=== PATIENT | female | born 1970 | race American Indian/Alaskan Native ===

== ENCOUNTER 2021-08-16 22:10 | Emergency (ER) | payer SELFPAY ==
[2021-08-16 22:25] VITALS: BP 177/103
[2021-08-16] MEDS ORDERED: predniSONE 20 MG TAB PO ONE (22:39)
[2021-08-16] MEDS ORDERED: diphenhydrAMINE 25 MG/10 ML ORAL LIQUID PO ONE (22:39)
[2021-08-16] MEDS ORDERED: CETIRIZINE 10 MG TAB PO ONE (22:39)
[2021-08-16] MEDS ORDERED: ACETAMINOPHEN 325 MG TAB PO STA (22:39)
[2021-08-16] MEDS ORDERED: FAMOTIDINE 20 MG TAB PO ONE (22:39)
--- NOTE | 2021-08-16 22:40 | Emergency Department Report ---
ED General Adult HPI - General Chief complaint: Allergic Reaction Stated complaint: I am having an allergic reaction Time Seen by Provider: 08/16/21 22:32 Source: patient, family, RN notes reviewed Mode of arrival: Ambulatory Limitations: No Limitations - History of Present Illness Initial comments: The patient is a 51-year-old female, who is currently visiting from [facility]. She presents to the ER today with a complaint of skin itching, pruritus, scratchy throat, and swelling around her eyes. She believes that she is having an allergic reaction. She started diclofenac about a week and a half ago for chronic pain. She states she is taken Motrin, Naprosyn, and ibuprofen in the past without significant difficulty. She typically does not present to [place] or visit [place] during pollen season or high allergy season. She reports that she left all of her medications at home. She does report chronic musculoskeletal pain here in the emergency room. She felt improved in the emergency room after supportive therapy. -: Gradual, days(s) Location: head, face, mouth Consistency: other (Aching and itching, constant) Improves with: medication Worsens with: none - Related Data Previous Rx's Medication Instructions Recorded Last Taken Type Albuterol Sulfate [Proair 90 mcg IH Q4HR PRN #2 aer.pow.ba 08/17/21 Unknown Rx Respiclick] Cetirizine HCl [ZyrTEC 10mg cap] 10 mg PO QDAY #30 cap 08/17/21 Unknown Rx EPINEPHrine [Epipen 2-Luis] 0.3 mg IM DAILY PRN #2 ml 08/17/21 Unknown Rx Famotidine [Pepcid] 20 mg PO BID #10 tablet 08/17/21 Unknown Rx diphenhydrAMINE [Benadryl] 50 mg PO Q8HR PRN #20 capsule 08/17/21 Unknown Rx predniSONE [Deltasone] 40 mg PO QDAY #8 tab 08/17/21 Unknown Rx Allergies Allergy/AdvReac Type Severity Reaction Status Date / Time tomato Allergy Swelling Verified 08/16/21 22:16 topiramate [From Topamax] Allergy Shortness Verified 08/16/21 22:16 of Breath ED Review of Systems ROS: Stated complaint: SOB Other details as noted in HPI Constitutional: denies: fever Eyes: other (Periorbital swelling. No ocular pain) ENT: congestion Respiratory: cough Cardiovascular: denies: chest pain Gastrointestinal: denies: abdominal pain Musculoskeletal: myalgia Skin: pruritus Neurological: weakness (Chronic weakness) ED Past Medical Hx - Past Medical History Previous Medical History?: Yes Hx Hypertension: Yes Hx CVA: Yes (Left side deficits) Hx Asthma: Yes - Medications Home Medications: Home Medications Medication Instructions Recorded Confirmed Last Taken Type Albuterol Sulfate [Proair 90 mcg IH Q4HR PRN #2 aer.pow.ba 08/17/21 Unknown Rx Respiclick] Cetirizine HCl [ZyrTEC 10mg cap] 10 mg PO QDAY #30 cap 08/17/21 Unknown Rx EPINEPHrine [Epipen 2-Luis] 0.3 mg IM DAILY PRN #2 ml 08/17/21 Unknown Rx Famotidine [Pepcid] 20 mg PO BID #10 tablet 08/17/21 Unknown Rx diphenhydrAMINE [Benadryl] 50 mg PO Q8HR PRN #20 capsule 08/17/21 Unknown Rx predniSONE [Deltasone] 40 mg PO QDAY #8 tab 08/17/21 Unknown Rx ED Physical Exam - General Limitations: No Limitations General appearance: alert, in no apparent distress - Head Head exam: Present: atraumatic, normocephalic - Eye Eye exam: Present: EOMI, conjunctival injection, nystagmus. Absent: normal appearance (There is periorbital swelling noted. There is no tenderness. There is no pus or streaking peer) - ENT ENT exam: Present: normal exam, normal orophraynx, mucous membranes moist, normal external ear exam, other (Nasal congestion is noted) - Neck Neck exam: Present: normal inspection, full ROM. Absent: tenderness, meningismus - Respiratory Respiratory exam: Present: normal lung sounds bilaterally. Absent: respiratory distress, wheezes, rales, rhonchi, stridor, decreased breath sounds - Cardiovascular Cardiovascular Exam: Present: regular rate, normal rhythm, normal heart sounds. Absent: bradycardia, tachycardia, irregular rhythm, systolic murmur, diastolic murmur, rubs, gallop - GI/Abdominal GI/Abdominal exam: Present: soft. Absent: distended, tenderness, guarding, rebound, rigid, pulsatile mass - Extremities Exam Extremities exam: Present: normal inspection, full ROM, pedal edema (Chronic 1+ edema in the bilateral lower extremities), other (2+ pulses noted in the bilateral upper and lower extremities. There is no palpable cord. negative Homans sign. Muscular compartments are soft. The pelvis is stable.). Absent: calf tenderness - Back Exam Back exam: Present: normal inspection. Absent: tenderness, CVA tenderness (R), CVA tenderness (L), paraspinal tenderness, vertebral tenderness - Neurological Exam Neurological exam: Present: alert, oriented X3, other (There is no facial droop. The tongue is midline. EOMI. Moves 4 extremities spontaneously.) - Psychiatric Psychiatric exam: Present: normal affect, normal mood - Skin Skin exam: Present: warm, dry, intact, normal color. Absent: rash ED Course Vital Signs 08/16/21 08/17/21 22:17 00:05 Temperature 97.7 F Pulse Rate 69 Respiratory 20 Rate Blood Pressure 177/103 [Right] O2 Sat by Pulse 98 Oximetry O2 Sat by Pulse 99 Oximetry [ Digit-Finger] - Pulse Oximetry Interpretation Digit-Finger Initial Pulse Oximetry Readin O2 Sat by Pulse Oximetry: 99 Actions Taken: none ED Medical Decision Making - Lab Data Vital Signs 08/16/21 08/17/21 22:17 00:05 Temperature 97.7 F Pulse Rate 69 Respiratory 20 Rate Blood Pressure 177/103 [Right] O2 Sat by Pulse 98 Oximetry O2 Sat by Pulse 99 Oximetry [ Digit-Finger] - Medical Decision Making Differential diagnosis, including but not limited to: Seasonal allergies Assessment and plan: 51-year-old female, who is afebrile, with reassuring vital signs, with exception of chronic hypertension which is not acutely symptomatic (please reference the [employer] clinical policy on asymptomatic hypertension), presenting to the ER with nontraumatic facial swelling, erythema, pruritus, scratchy throat, presenting during the high pollen season. I suspect seasonal allergies. Patient and family educated as such. Patient has taken NSAIDs in the past, and reports that she started diclofenac about a week and a half ago. She is protecting her airway not stridulous. This is unlikely to be NSAID allergy and intolerance. Nevertheless, discontinue diclofenac. Patient to be discharged with as needed epinephrine, as needed Benadryl, Pepcid, steroids, she requests albuterol which she has at home, and she is counseled to take an allergy medication like Zyrtec. Further counseled to follow-up with a primary care doctor locally within the next week or so. Return precautions reviewed. All questions answered. Patient observed in this ER for hours without clinical decompensation Critical care attestation.: If time is entered above; I have spent that time in minutes in the direct care of this critically ill patient, excluding procedure time. ED Disposition Clinical Impression: Elevated blood pressure reading, Allergies Disposition: HOME / SELF CARE / HOMELESS Is pt being admited?: No Does the pt Need Aspirin: No Condition: Good Instructions: Allergies, Adult, [id number] Additional Instructions: As we discussed, we suspect that the patient is experiencing seasonal allergies. Take the prescribed medications as needed and directed. Continue current blood pressure medication. Follow-up with your primary care doctor within 2 weeks. Discontinue diclofenac for the time being until cleared to resume by your primary care doctor. Please return to the emergency room right away with new pain, worsened pain, migration of pain, projectile vomiting, change in mental status, confusion, inability tolerate liquid feeds, new, worsened or different symptoms not present on the initial emergency room evaluation Referrals: [facility] [Provider Group] - 3-5 Days Forms: Work/School Release Form(ED)
== END 2021-08-17 03:41 | disposition home or self-care (01) ==
LOC: ED 22:10
DX: R03.0 Elevated blood-pressure reading, without diagnosis of hypertension (principal); L29.8 Other pruritus; I10 Essential (primary) hypertension; J45.909 Unspecified asthma, uncomplicated; Z88.8 Allergy status to other drugs, medicaments and biological substances; Z91.018 Allergy to other foods; Z79.899 Other long term (current) drug therapy
CPT/HCPCS: 99282; Q0163